=== PATIENT | male | born 1990 | race Caucasian/White ===

== ENCOUNTER 2020-07-10 18:27 | Emergency (ER) | payer MEDICAID ==
[~2020-07-10] VITALS: Ht 162.6 cm; Wt 54.4 kg
[2020-07-10 18:28] VITALS: BP 131/88
[2020-07-10 18:48] VITALS: BP 131/88
== END 2020-07-10 18:48 | disposition home or self-care (01) ==
LOC: MED 18:27
DX: T40.1X1A Poisoning by heroin, accidental (unintentional), initial encounter (principal); F17.210 Nicotine dependence, cigarettes, uncomplicated; R41.82 Altered mental status, unspecified; Y92.89 Other specified places as the place of occurrence of the external cause
CPT/HCPCS: 99283